=== PATIENT | male | born 1960 | race Caucasian/White ===

== ENCOUNTER 2022-06-21 09:54 | Outpatient (CLI) | payer BC, SELFPAY ==
[2022-06-21 11:52] LABS: Albumin* 4.5 g/dL (3.3-5.0); Chloride* 103 mmol/L (96-114); Potassium* 4.3 mmol/L (3.6-5.1); Sodium* 141 mmol/L (135-149)
[2022-06-21 11:54] LABS: Carbon Dioxide* 30 mmol/L (20-32); Cholesterol* 212 mg/dL (90-199); Creatinine* 1.2 mg/dL (0.5-1.5); Estimated Glomerular Filt Rate 68 ml/min
[2022-06-21 11:55] LABS: Alanine Aminotransferase* 58 U/L (4-50); Alkaline Phosphatase* 103 U/L (40-150); Aspartate Amino Transferase* 57 U/L (12-35); Bilirubin Total* 0.8 mg/dL (0.1-1.5); Blood Urea Nitrogen* 17 mg/dL (7-30); Calcium* 9.1 mg/dL (8.4-10.6); Glucose* 108 mg/dL (60-115); Total Protein* 7.6 g/dL (6.0-8.3); Triglycerides* 219 mg/dL (40-149)
[2022-06-21 11:56] LABS: HDL Cholesterol* 34 mg/dL (>=40); LDL Cholesterol Calculated 134 mg/dL (<100)
[2022-06-21 12:26] LABS: PSA Screen* 4.32 ng/mL (0.10-4.00)
== END 2022-06-21 09:55 | disposition home or self-care (01) ==
PROVIDERS: PCP Internal Medicine; Visit Provider Internal Medicine
DX: Z01.818 Encounter for other preprocedural examination (principal); N52.9 Male erectile dysfunction, unspecified; Z12.5 Encounter for screening for malignant neoplasm of prostate; Z13.6 Encounter for screening for cardiovascular disorders
CPT/HCPCS: 80053; 80061; 84153

== ENCOUNTER 2022-06-25 09:46 | Outpatient (CLI) | payer BC, SELFPAY ==
[2022-06-25 14:39] LABS: SARS PCR* Negative SARS-CoV-2 (Negative)
== END 2022-06-25 09:47 | disposition home or self-care (01) ==
LOC: FBOREF 09:47
PROVIDERS: PCP Internal Medicine; Visit Provider Internal Medicine
DX: Z11.52 Encounter for screening for COVID-19 (principal)
CPT/HCPCS: 87635

== ENCOUNTER 2022-06-26 11:56 | Outpatient (CLI) | payer BC, SELFPAY ==
--- NOTE | 2022-06-26 14:05 | W.ANESCHARGE ---
Anesthesia Charges Start Date/Time Anesthesia Start Date: 06/26/22 Anesthesia Start Time: 12:56 Stop Date/Time Anesthesia Stop Date: 06/26/22 Anesthesia Stop Time: 13:27 Summary Emergency: No
--- NOTE | 2022-06-26 14:39 | W.ANESCHARGE ---
Anesthesia Charges Start Date/Time Anesthesia Start Date: 06/26/22 Anesthesia Start Time: 12:56 Stop Date/Time Anesthesia Stop Date: 06/26/22 Anesthesia Stop Time: 13:27 Summary Emergency: No
== END 2022-06-26 11:57 | disposition home or self-care (01) ==
PROVIDERS: PCP Internal Medicine; Visit Provider Surgery
DX: Z12.11 Encounter for screening for malignant neoplasm of colon (principal); K64.4 Residual hemorrhoidal skin tags
CPT/HCPCS: 00812; 45378; J2704